=== PATIENT | male | born 1960 | race American Indian/Alaskan Native ===

== ENCOUNTER 2018-02-11 16:49 | Inpatient (IN) | payer OTHER ==
[2018-02-11 17:54] LABS: Basophils # (Auto) 0.1 K/mm3 (0.0-0.1); Basophils % (Auto) 0.8 % (0.0-1.8); Eosinophils # (Auto) 0.2 K/mm3 (0.0-0.4); Eosinophils % (Auto) 2.7 % (0.0-4.3); Hematocrit 44.7 % (35.5-45.6); Lymphocytes % (Auto) 43.4 % (13.4-35.0); Mean Corpuscular HGB Conc 34 % (32-34); Mean Corpuscular Hemoglobin 31 pg (28-32); Mean Corpuscular Volume 91 fl (84-94); Monocytes # (Auto) 0.8 K/mm3 (0.0-0.8); Monocytes % (Auto) 12.4 % (0.0-7.3); Platelet Count 109 K/mm3 (140-440); Red Blood Count 4.93 M/mm3 (3.65-5.03); Red Cell Distribution Width 13.6 % (13.2-15.2)
[2018-02-11 18:10] LABS: BUN/Creatinine Ratio 10; Blood Urea Nitrogen 11 mg/dL (9-20); Calcium 8.8 mg/dL (8.4-10.2); Hemolysis Index 25
--- NOTE | 2018-02-11 19:15 | XRay Report ---
FINAL REPORT PROCEDURE: XR CHEST ROUTINE 2V TECHNIQUE: PA and lateral chest radiographs were obtained. CPT 28107 HISTORY: Shortness of breath COMPARISON: No prior studies are available for comparison. FINDINGS: Heart: Normal. Mediastinum/Vessels: Normal. Lungs/Pleural space: Normal. Bony thorax: No acute osseous abnormality. Other: IMPRESSION: Negative examination.
--- NOTE | 2018-02-11 23:45 | Emergency Department Report ---
HPI - General Chief Complaint: Dyspnea/Respdistress Time Seen by Provider: 02/11/18 23:27 - HPI HPI: Room 22 The patient is a 57-year-old male presenting with chief complaint of right lower extremity swelling and shortness of breath. The patient states his symptoms began approximately one week ago had some mild shortness of breath. Patient states he takes laxative and his symptoms had improved. The patient states yesterday he completed an [address] with one stop when he got home he realized his right lower extremity with swelling. The patient states that shortness of breath also returned and worsened. Patient denied having chest pain or pleurisy. Location: Lungs, right lower extremity Duration: [See above] Quality: Shortness of breath, swelling Severity: Moderate Modifying factors: [see above] Context: [see above] Mode of transportation: [not driving] ED Past Medical Hx - Past Medical History Previous Medical History?: No - Surgical History Past Surgical History?: No - Family History Family history: no significant - Social History Smoking Status: Never Smoker Substance Use Type: None (denies illicit drug use) ED Review of Systems ROS: Stated complaint: DIFFICULTY BREATHING Other details as noted in HPI Respiratory: shortness of breath Cardiovascular: denies: chest pain Physical Exam - Physical Exam Vital Signs: Vital Signs 02/11/18 02/11/18 02/11/18 17:20 22:14 22:15 Temperature 98.6 F Pulse Rate 88 Respiratory 16 Rate Blood Pressure 139/84 127/81 O2 Sat by Pulse 97 98 97 Oximetry 02/11/18 02/11/18 22:22 22:30 Temperature 99.7 F H Pulse Rate Respiratory Rate Blood Pressure 116/76 O2 Sat by Pulse 96 Oximetry Physical Exam: GENERAL: The patient is well-developed well-nourished male sitting on stretcher not appearing to be in acute distress. [] HEENT: Normocephalic. Atraumatic. Extraocular motions are intact. Patient has moist mucous membranes. NECK: Supple. Trachea midline CHEST/LUNGS: Clear to auscultation. However patient coughs whenever he inspires deeply. There is no respiratory distress noted. HEART/CARDIOVASCULAR: Regular. There is no tachycardia. There is no gallop rub or murmur. ABDOMEN: Abdomen is soft, nontender. Patient has normal bowel sounds. There is no abdominal distention. SKIN: There is no rash. There is no edema. There is no diaphoresis. NEURO: The patient is awake, alert, and oriented. The patient is cooperative. The patient has no focal neurologic deficits. The patient has normal speech MUSCULOSKELETAL: There is swelling of the right calf. ED Course Vital Signs 02/11/18 02/11/18 02/11/18 17:20 22:14 22:15 Temperature 98.6 F Pulse Rate 88 Respiratory 16 Rate Blood Pressure 139/84 127/81 O2 Sat by Pulse 97 98 97 Oximetry 02/11/18 02/11/18 22:22 22:30 Temperature 99.7 F H Pulse Rate Respiratory Rate Blood Pressure 116/76 O2 Sat by Pulse 96 Oximetry - Consultations Consultation #1: 02/12/18 00:35 Vascular surgery paged 02/12/18 01:[address] Moore. Recommends heparin drip at this time. ED Medical Decision Making - Lab Data Result diagrams: 02/11/18 17:27 02/11/18 17:27 Laboratory Tests 02/11/18 02/11/18 02/11/18 17:27 17:27 17:27 WBC 6.8 RBC 4.93 Hgb 15.0 Hct 44.7 MCV 91 MCH 31 MCHC 34 RDW 13.6 Plt Count 109 L Lymph % (Auto) 43.4 H Giles % (Auto) 12.4 H Eos % (Auto) 2.7 Baso % (Auto) 0.8 Lymph # 3.0 Giles # 0.8 Eos # 0.2 Baso # 0.1 Seg Neutrophils % 40.7 Seg Neutrophils # 2.8 D-Dimer 1919.19 H Sodium 137 Potassium 3.9 Chloride 100.5 Carbon Dioxide 24 Anion Gap 16 BUN 11 Creatinine 1.1 Estimated GFR > 60 BUN/Creatinine Ratio 10 Glucose 123 H Calcium 8.8 Troponin T < 0.010 - EKG Data -: EKG Interpreted by Me EKG shows normal: sinus rhythm Rate: normal - EKG Data When compared to previous EKG there are: previous EKG unavailable Interpretation: nonspecific ST-T wave marquis (T-wave inversion in lead 3) - Radiology Data Radiology results: report reviewed (chest x-ray), image reviewed (chest x-ray) interpreted by me: Chest x-ray- no focal infiltrate, no pneumothorax - Differential Diagnosis PE, DVT, pneumonia, Critical care attestation.: If time is entered above; I have spent that time in minutes in the direct care of this critically ill patient, excluding procedure time. ED Disposition Clinical Impression: Acute saddle pulmonary embolus, Shortness of breath Disposition: OP ADMIT IP TO THIS HOSP Is pt being admited?: Yes Does the pt Need Aspirin: No Condition: Serious Referrals: PRIMARY CARE,MD [Primary Care Provider] - 3-5 Days Time of Disposition: 01:00 (hospitalist notified (Dr Desai))
--- NOTE | 2018-02-12 00:40 | Cat Scan Report ---
FINAL REPORT PROCEDURE: CT ANGIO CHEST TECHNIQUE: Computerized tomographic angiography of the chest was performed during the IV injection of iodinated nonionic contrast including image processing. The image data was postprocessed using 2-dimensional multiplanar reformatted (MPR) and 3-dimensional (MIP and/or volume rendered) techniques. HISTORY: shortness of breath COMPARISON: No prior studies are available for comparison. FINDINGS: Pulmonary outflow tract, right and left main pulmonary arteries and their proximal branches: There is a filling defects seen extending from the right main pulmonary artery laterally to the left main pulmonary artery laterally. Filling defects also extend into branches of the right and left upper lobes and into proximal and distal branches of the right and left lower lobes.. Pericardium: No evidence of pericardial effusion. Thoracic aorta: No evidence of aneurysmal dilatation or dissection. Coronary arteries: Are partially calcified indicating atherosclerotic disease. Mediastinum and hilar regions: Nonspecific subcentimeter lymph nodes are visualized. No pathologically enlarged lymph nodes or masses are identified. Lung Aggarwal: Small amount of dependent atelectasis visualized. Lungs otherwise are clear. No effusions or masses are identified. No focal infiltrates are seen. Upper abdomen: No acute or focal abnormality is seen. Other: None IMPRESSION: Large saddle embolus present as well as fairly extensive emboli in the upper lobes and in both lower lobes. Critical value: These findings were discussed with Dr Natarajan by phone conversation on 02/12/2018 at 12:28 a.m. Eastern standard time
[2018-02-12] MEDS ORDERED: HEPARIN 10,000 UNITS/10 ML IV ONE (01:06)
[2018-02-12] MEDS: HEPARIN/ 0.45% NACL-25,000 UNIT/500 ML 25,000 UNIT/500 ML BAG IV SCH ×2 (01:44→23:06)
[2018-02-12 02:28] LABS: INR 0.98 (0.87-1.13)
[2018-02-12 02:29] LABS: Partial Thromboplastin Time 31.7 Sec. (24.2-36.6)
[2018-02-12] MEDS ORDERED: MORPHINE IV PRN (07:59)
[2018-02-12] MEDS ORDERED: PERCOCET 5/325 PO PRN (07:59)
[2018-02-12] MEDS ORDERED: XANAX PO PRN (07:59)
[2018-02-12] MEDS ORDERED: AMBIEN PO PRN (07:59)
[2018-02-12] MEDS ORDERED: SODIUM CHLORIDE FLUSH SYRINGE 10 ML IV PRN (07:59)
[2018-02-12] MEDS ORDERED: NACL 0.9% 1000 ML 1,000 ML IV SCH (08:00)
--- NOTE | 2018-02-12 08:04 | Event Note ---
Date: 02/12/18 See Dictated H/p in reports Acute Pulmonary embolism--Saddle embolus [employer] driver-sitting for prolonged periods
[2018-02-12] MEDS: SODIUM CHLORIDE FLUSH SYRINGE 10 ML IV SCH (09:30)
[2018-02-12] MEDS: PEPCID IV SCH ×2 (09:30→23:10)
[2018-02-12 11:14] LABS: Hematocrit 42.9 % (35.5-45.6); Hemoglobin 14.3 gm/dl (11.8-15.2)
[2018-02-12 11:26] LABS: INR 1.06 (0.87-1.13)
[2018-02-12 11:28] LABS: Heparin anti-factor XA 0.87 U.I./ml (0.3-0.7)
--- NOTE | 2018-02-12 12:03 | Progress Note ---
Assessment and Plan Assessment and plan: --Acute pulmonary embolism/saddle thrombus Oxygen titrated O2 sats more than 90%, continue heparin drip Follow vascular, pulmonary evaluations and recommendations Closely monitor, Check lower extremity venous Doppler, to rule out DVT Consider hematology consultation Echocardiogram for left ventricular and right ventricle function --Chest pain; secondary to PE Continue supportive care --DVT prophylaxis; patient is already on heparin drip Closely monitor the patient and adjust management as needed Plan of care discussed with the patient, his at the bedside and his nurse Critical care time 32 minutes History Interval history: 57-year-old obese -Irish male patient, with no significant past medical history not on any medications, [employer] moving van driver by profession, was admitted through emergency room with history of acute chest pain and right lower extremity swelling Patient was initially evaluated noted to have elevated d-dimer , CTA chest consistent with acute PE /saddle thrombus, patient was admitted to ICU and started on heparin drip, consulted vascular and pulmonary critical Today Patient is hemodynamically stable, saturating 95-96% room air Complains of mild chest discomfort this morning, denies chest pain or shortness of breath Alert awake oriented 3 Vital signs stable Hospitalist Physical - Constitutional Vitals: Temp Pulse Resp BP Pulse Ox 98.4 F 85 16 117/58 98 02/12/18 07:56 02/12/18 11:00 02/12/18 11:00 02/12/18 11:00 02/12/18 11:00 General appearance: Present: no acute distress, well-nourished, obese - EENT Eyes: Present: PERRL, EOM intact - Neck Neck: Present: supple, normal ROM - Respiratory Respiratory effort: normal Respiratory: bilateral: diminished, rhonchi, negative: rales, wheezing - Cardiovascular Rhythm: regular Heart Sounds: Present: S1 & S2 - Extremities Extremities: no ischemia, abnormal (right lower extremity swelling) - Abdominal General gastrointestinal: soft, non-tender, non-distended, normal bowel sounds - Integumentary Integumentary: Present: clear, warm - Psychiatric Psychiatric: appropriate mood/affect, cooperative - Neurologic Neurologic: CNII-XII intact, moves all extremities Results - Labs CBC & Chem 7: 02/12/18 10:11 02/11/18 17:27 Labs: Laboratory Last Values WBC 6.8 K/mm3 (4.5-11.0) 02/11/18 17:27 RBC 4.93 M/mm3 (3.65-5.03) 02/11/18 17:27 Hgb 14.3 gm/dl (11.8-15.2) 02/12/18 10:11 Hct 42.9 % (35.5-45.6) 02/12/18 10:11 MCV 91 fl (84-94) 02/11/18 17: MCH 31 pg (28-32) 02/11/18 17: MCHC 34 % (32-34) 02/11/18 17: RDW 13.6 % (13.2-15.2) 02/11/18 17: Plt Count 115 K/mm3 (140-440) L 02/12/18 10:11 Lymph % (Auto) 43.4 % (13.4-35.0) H 02/11/18 17: Garden % (Auto) 12.4 % (0.0-7.3) H 02/11/18 17: Eos % (Auto) 2.7 % (0.0-4.3) 02/11/18 17: Baso % (Auto) 0.8 % (0.0-1.8) 02/11/18 17: Lymph # 3.0 K/mm3 (1.2-5.4) 02/11/18 17: Garden # 0.8 K/mm3 (0.0-0.8) 02/11/18 17: Eos # 0.2 K/mm3 (0.0-0.4) 02/11/18 17: Baso # 0.1 K/mm3 (0.0-0.1) 02/11/18 17: Seg Neutrophils % 40.7 % (40.0-70.0) 02/11/18 17: Seg Neutrophils # 2.8 K/mm3 (1.8-7.7) 02/11/18 17: PT 14.4 Sec. (12.2-14.9) 02/12/18 10:11 INR 1.06 (0.87-1.13) 02/12/18 10:11 APTT 212.0 Sec. (24.2-36.6) H* 02/12/18 10:11 D-Dimer 1919.19 ng/mlDDU (0-234) H 02/11/18 17:27 Heparin Anti-Xa Level 0.87 U.I./ml (0.3-0.7) H 02/12/18 10:11 Sodium 137 mmol/L (137-145) 02/11/18 17:27 Potassium 3.9 mmol/L (3.6-5.0) 02/11/18 17:27 Chloride 100.5 mmol/L (98-107) 02/11/18 17:27 Carbon Dioxide 24 mmol/L (22-30) 02/11/18 17:27 Anion Gap 16 mmol/L 02/11/18 17:27 BUN 11 mg/dL (9-20) 02/11/18 17:27 Creatinine 1.1 mg/dL (0.8-1.5) 02/11/18 17:27 Estimated GFR > 60 ml/min 02/11/18 17:27 BUN/Creatinine Ratio 10 % 02/11/18 17:27 Glucose 123 mg/dL (75-100) H 02/11/18 17:27 Calcium 8.8 mg/dL (8.4-10.2) 02/11/18 17:27 Troponin T < 0.010 ng/mL (0.00-0.029) 02/11/18 17:27
[2018-02-12] MEDS ORDERED: PROAIR IH PRN (12:14)
--- NOTE | 2018-02-12 12:23 | Consultation ---
History of Present Illness Consult date: 02/12/18 Requesting physician: PEDRO TREVIÑO Reason for consult: pulmonary embolism History of present illness: PULMONARY/CCM CONSULT NOTE (Full dictation # [id number]) Please see dictated notes for full details Medications and Allergies Allergies Allergy/AdvReac Type Severity Reaction Status Date / Time No Known Allergies Allergy Verified 02/11/18 17:20 Home Medications Medication Instructions Recorded Confirmed Last Taken Type No Known Home Medications [No 02/12/18 02/12/18 Unknown History Reported Home Medications] Active Meds: Active Medications Albuterol (Proair) 2 puff IH QIDRT PRN PRN Reason: Shortness Of Breath Alprazolam (Xanax) 0.25 mg PO Q8H PRN PRN Reason: Anxiety Famotidine (Pepcid) 20 mg IV BID [facility] Last Admin: 02/12/18 09:30 Dose: 20 mg Heparin Sodium/Sodium Chloride (Heparin/ 0.45% Nacl-25,000 Unit/500 Ml) 25,000 unit in 500 mls @ 27 mls/hr IV TITR JAVY; Protocol Last Titration: 02/12/18 11:34 Dose: 1,300 units/hr, 26 mls/hr Sodium Chloride (Nacl 0.9% 1000 Ml) 1,000 mls @ 75 mls/hr IV DIRECT JAVY Morphine Sulfate (Morphine) 2 mg IV Q4H PRN PRN Reason: Pain, Moderate (4-6) Oxycodone/Acetaminophen (Percocet 5/325) 1 tab PO Q6H PRN PRN Reason: Pain, Moderate (4-6) Sodium Chloride (Sodium Chloride Flush Syringe 10 Ml) 10 ml IV BID JAVY Last Admin: 02/12/18 09:30 Dose: 10 ml Sodium Chloride (Sodium Chloride Flush Syringe 10 Ml) 10 ml IV PRN PRN PRN Reason: LINE FLUSH Zolpidem Tartrate (Ambien) 5 mg PO QHS PRN PRN Reason: Sleeplessness Physical Examination Vital signs: Vital Signs Temp Pulse Resp BP Pulse Ox 98.6 F 88 16 139/84 97 02/11/18 17:20 02/11/18 17:20 02/11/18 17:20 02/11/18 17:20 02/11/18 17:20 Results - Laboratory Findings CBC and BMP: 02/12/18 10:11 02/11/18 17:27 PT/INR, D-dimer PT 14.4 Sec. (12.2-14.9) 02/12/18 10:11 INR 1.06 (0.87-1.13) 02/12/18 10:11 D-Dimer 1919.19 ng/mlDDU (0-234) H 02/11/18 17:27 Abnormal lab findings: Abnormal Labs 02/11/18 02/11/18 02/11/18 17:27 17:27 17:27 Plt Count 109 L Lymph % (Auto) 43.4 H [place] % (Auto) 12.4 H APTT D-Dimer 1919.19 H Heparin Anti-Xa Level Glucose 123 H 02/12/18 02/12/18 10:11 10:11 Plt Count 115 L Lymph % (Auto) [place] % (Auto) APTT 212.0 H* D-Dimer Heparin Anti-Xa Level 0.87 H Glucose
--- NOTE | 2018-02-12 12:44 | Consultation ---
History of Present Illness - Reason for Consult Consult date: 02/12/18 pulmonary embolus Requesting physician: PEDRO TREVIÑO - History of Present Illness He is a 57-year-old -[place] male arrived and lamina after an [address] from [facility]. He noted some right leg discomfort and minor swelling and then developed significant shortness of breath and presented to the emergency room. He was found to have a bilateral pulmonary embolism with CT diagnosis of saddle embolus. We were consulted at that point to evaluate him for possible catheter directed thrombolyzes. He denies syncope or presyncope. He has had some chest tightness and breathlessness. He denies prior knowledge of a DVT; however, does relate a previous episode several years ago of right ankle swelling that was treated with a diuretic only and no diagnostic tests and was not associated with shortness of breath. He denies any other significant medical issues specifically no known history of coronary artery disease or congestive heart failure and liver failure or renal failure. Past History Past Surgical History: No surgical history Social history: no significant social history Family history: no significant family history Medications and Allergies Allergies Allergy/AdvReac Type Severity Reaction Status Date / Time No Known Allergies Allergy Verified 02/11/18 17:20 Home Medications Medication Instructions Recorded Confirmed Last Taken Type No Known Home Medications [No 02/12/18 02/12/18 Unknown History Reported Home Medications] Active Meds: Active Medications Albuterol (Proair) 2 puff IH QIDRT PRN PRN Reason: Shortness Of Breath Alprazolam (Xanax) 0.25 mg PO Q8H PRN PRN Reason: Anxiety Famotidine (Pepcid) 20 mg IV BID JAVY Last Admin: 02/12/18 09:30 Dose: 20 mg Heparin Sodium/Sodium Chloride (Heparin/ 0.45% Nacl-25,000 Unit/500 Ml) 25,000 unit in 500 mls @ 27 mls/hr IV TITR JAVY; Protocol Last Titration: 02/12/18 11:34 Dose: 1,300 units/hr, 26 mls/hr Sodium Chloride (Nacl 0.9% 1000 Ml) 1,000 mls @ 75 mls/hr IV DIRECT JAVY Morphine Sulfate (Morphine) 2 mg IV Q4H PRN PRN Reason: Pain, Moderate (4-6) Oxycodone/Acetaminophen (Percocet 5/325) 1 tab PO Q6H PRN PRN Reason: Pain, Moderate (4-6) Sodium Chloride (Sodium Chloride Flush Syringe 10 Ml) 10 ml IV BID JAVY Last Admin: 02/12/18 09:30 Dose: 10 ml Sodium Chloride (Sodium Chloride Flush Syringe 10 Ml) 10 ml IV PRN PRN PRN Reason: LINE FLUSH Zolpidem Tartrate (Ambien) 5 mg PO QHS PRN PRN Reason: Sleeplessness Review of Systems All systems: negative (as mentioned in the history of present illness) Exam - Constitutional Vitals: Temp Pulse Resp BP Pulse Ox 98.6 F 75 16 114/73 99 02/12/18 12:00 02/12/18 12:00 02/12/18 12:00 02/12/18 12:00 02/12/18 12:00 General appearance: Present: no acute distress - EENT Eyes: Present: PERRL, EOM intact ENT: hearing intact, clear oral mucosa, dentition normal - Neck Neck: Present: supple, normal ROM - Respiratory Respiratory effort: normal - Cardiovascular Rhythm: regular - Extremities Extremities: pulses intact Extremity abnormal: edema (mild right lower extremity), tenderness (minor tenderness right calf) Peripheral Pulses: within normal limits - Abdominal General gastrointestinal: Present: soft, non-tender Male genitourinary: Present: deferred - Rectal Rectal Exam: deferred - Integumentary Integumentary: Present: clear, warm, dry - Musculoskeletal Musculoskeletal: gait normal, strength equal bilaterally - Psychiatric Psychiatric: appropriate mood/affect, intact judgment & insight - Neurologic Neurologic: CNII-XII intact, moves all extremities Results - Labs CBC & Chem 7: 02/12/18 10:11 02/11/18 17:27 Labs: Abnormal lab results 02/11/18 02/11/18 02/11/18 Range/Units 17:27 17:27 17:27 Plt Count 109 L (140-440) K/mm3 Lymph % (Auto) 43.4 H (13.4-35.0) % Noble % (Auto) 12.4 H (0.0-7.3) % APTT (24.2-36.6) Sec. D-Dimer 1919.19 H (0-234) ng/mlDDU Heparin Anti-Xa Level (0.3-0.7) U.I./ml Glucose 123 H (75-100) mg/dL 02/12/18 02/12/18 Range/Units 10:11 10:11 Plt Count 115 L (140-440) K/mm3 Lymph % (Auto) (13.4-35.0) % Noble % (Auto) (0.0-7.3) % APTT 212.0 H* (24.2-36.6) Sec. D-Dimer (0-234) ng/mlDDU Heparin Anti-Xa Level 0.87 H (0.3-0.7) U.I./ml Glucose (75-100) mg/dL - Imaging and Cardiology CT scan - chest: report reviewed, image reviewed (bilateral subsegmental pulmonary embolism, small amount draped across the bifurcation of the main pulmonary artery but nonobstructive. Minor evidence of right heart strain with minimal dilatation of the right ventricle. Coronary calcifications noted incidental finding.) Venous US: pending (preliminary right popliteal and distal superficial femoral venous thrombosis) Assessment and Plan - Patient Problems (1) Deep venous embolism and thrombosis of right lower extremity Onset Date: ~02/10/18 Current Visit: Yes Status: Acute (2) Acute saddle pulmonary embolus Current Visit: Yes Status: Acute Qualifiers: Acute cor pulmonale presence: without acute cor pulmonale Qualified Code(s) : I26.92 - Saddle embolus of pulmonary artery without acute cor pulmonale Plan to address problem: He has bilateral pulmonary emboli but is hemodynamically stable. The absence of syncope, hypoxemia, or significant right heart strain strongly suggests that he does not require catheter directed thrombolyzes for recovery. It is recommended that he begin oral anticoagulation and if Eliquis or Xeralto is selected he could be discharged once his abilities to obtain this medication is confirmed. He has been given appropriate instructions for elevation and will need as an outpatient a prescription for compression hosiery which can be obtained in our office. I would recommend a minimum of 6 months and probably one year of therapy. He may require an outpatient evaluation for thrombophilia as this may be his second episode of DVT.
--- NOTE | 2018-02-12 13:56 | History and Physical Report ---
CHIEF COMPLAINT: Shortness of breath for 1 week. HISTORY OF PRESENT ILLNESS: A 57-year-old -[place] male with no significant past medical history, comes in for increasing shortness of breath and right lower extremity swelling. This has been going on for 1 week and has shortness of breath on minimal exertion. 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 He ____ long car ride ____, but it was remote in October. 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 PAST MEDICAL HISTORY: None. PAST SURGICAL HISTORY: None. FAMILY HISTORY: Hypertension. SOCIAL HISTORY: Does not smoke. No alcohol, no recreational drugs. REVIEW OF SYSTEMS: Significant for shortness of breath on exertion and at rest, and right lower extremity swelling. Otherwise, review of systems negative. A 14-point review of systems done. PHYSICAL EXAMINATION: GENERAL: Middle-aged male, cooperative during examination. VITAL SIGNS: Temperature is 98.6, pulse is 88, respirations 16, blood pressure 139/84, sats are 98%. HEENT: Unremarkable. Pupils equal and reactive. NECK: Supple, no lymphadenopathy, no thyromegaly. LUNGS: Scattered rhonchi bilaterally. CARDIOVASCULAR: S1, S2 heard. No gallop, no murmur, no rub. Apical impulse in left fifth intercostal space and midclavicular line. ABDOMEN: Soft and benign. No hepatosplenomegaly, no guarding, no rigidity. Hernial orifices are normal. EXTREMITIES: Good pedal pulses. No pedal edema. The right lower extremity is slightly swollen. LABORATORY DATA: Significant for normal electrolytes. Glucose is slightly high 123, BUN and creatinine is 11 and 1.1. H and H is [address] of the chest, CT angiogram shows filling defects extending from the right main pulmonary artery laterally and also left main pulmonary artery laterally. Filling defects also extending to the branches of the right and left upper lobes and in the proximal and distal branches of the right and left lower lobes. The final impression was large saddle embolism as well as fairly extensive emboli in the upper lobes and in both lower lobes. EKG, sinus tachycardia present. ASSESSMENT AND PLAN: 1. Acute pulmonary embolism with saddle embolism. Vascular Surgery consulted and also Critical Care Unit consulted. The patient initiated on IV heparin. We will defer to the hospitalist team regarding Coumadin or Xarelto or Eliquis. 2. Right lower extremity deep venous thrombosis, ____ strong possibility. Venous duplex scan to be reported. 3. Deep venous thrombosis prophylaxis. The patient already on heparin. JOB# [id number] VSM/NTS
[2018-02-12] MEDS ORDERED: PROVENTIL IH PRN (16:00)
[2018-02-13 03:44] LABS: Hematocrit 42.1 % (35.5-45.6); Hemoglobin 14.7 gm/dl (11.8-15.2); Mean Corpuscular HGB Conc 35 % (32-34); Mean Corpuscular Hemoglobin 31 pg (28-32); Mean Corpuscular Volume 89 fl (84-94); Platelet Count 117 K/mm3 (140-440); Red Blood Count 4.72 M/mm3 (3.65-5.03); Red Cell Distribution Width 13.2 % (13.2-15.2)
[2018-02-13 04:08] LABS: Alanine Aminotransferase 13 units/L (7-56); Albumin 3.6 g/dL (3.9-5); BUN/Creatinine Ratio 10; Blood Urea Nitrogen 11 mg/dL (9-20); Calcium 8.6 mg/dL (8.4-10.2); Hemolysis Index 5
[2018-02-13 04:43] LABS: Basophils % (Manual) 0 % (0.0-1.8); Platelet Estimate Consistent w Auto; RBC Morphology Normal; Total Cells Counted 100
--- NOTE | 2018-02-13 05:03 | Consultation ---
PULMONARY CRITICAL CARE CONSULT NOTE CONSULTING PHYSICIAN: Dr. Natarajan. REASON FOR CONSULTATION: Saddle pulmonary embolus, need for possible thrombolytics. CHIEF COMPLAINT AND HISTORY OF PRESENT ILLNESS: The patient is a 57-year-old male with past medical history significant perhaps for being obese. Otherwise, he denies any real medical history. He does complain about 1 week of increasing shortness of breath, right lower extremity swelling. He took some laxatives. His symptoms improved; however, on the day of presentation, he stated he had just completed an 8-hour drive and when he got home, he noticed that there was significant increase in the right lower extremity swelling. He has also developed increasing dyspnea on exertion. He denied any gross or streaky hemoptysis. He denied any chest pain, pleuritic or otherwise. He stated that he was burping a lot whenever he would try and take a deep breath and really that was as much as he noted. Evaluation in the Emergency Room revealed a saddle pulmonary embolus. He denied any dizziness. He denied any loss of consciousness. He denied any new onset focal weakness. The patient denies a history of tobacco use whatsoever. This really is as much of the history of presentation as I have. PAST MEDICAL HISTORY: Obese. PAST SURGICAL HISTORY: Denied. MEDICATIONS: He was on at the time I stopped by to see him according to the medication administration record included the following: Pepcid 20 mg IV b.i.d., Xanax 0.25 mg p.o. q. 8 hours. He was on a heparin drip 1350 units per hour p.r.n., morphine sulfate 2 mg IV q. 4 hours p.r.n. nausea and vomiting and p.r.n. Ambien. ALLERGIES: No known drug allergies. DIET: Obese gentleman. Denies acute weight loss or gain in the preceding few weeks to months. FAMILY AND SOCIAL HISTORY: Lives in the community. Denies alcohol, tobacco, or illicit drug use or abuse. FAMILY HISTORY: Not significant and denies any history of blood clots. REVIEW OF SYSTEMS: As in the body of the history above, otherwise denies polydipsia, polyuria. Denies heat or cold intolerance. Denies any new rashes on his body. Denies any gross hematochezia or melena. Complete review of systems obtained. Pertinent positives and/or negatives as in body of history above, otherwise they are noncontributory. PHYSICAL EXAMINATION: VITAL SIGNS: At presentation in the Emergency Room vital signs show that he was afebrile, temperature was 98.6 with a pulse of 88, respiratory rate of 16, blood pressure 139/84, oxygen sats were 97%, inspired oxygen concentration was not recorded. GENERAL: A middle-aged looking male normocephalic, atraumatic, talking to me in full sentences, in mild respiratory distress at worst. HEAD, EYES, EARS, NOSE AND THROAT: Anicteric. No conjunctival erythema. Grossly, no palpable lymph nodes in the supraclavicular or submandibular lymph node chains. No thyromegaly, no gross jugular venous distention. Oropharynx is a Mallampati #4 oropharynx. Oropharynx is moist. LUNGS: Auscultation of both lung landis unremarkable. Lungs are clear bilaterally. HEART: Heart sounds 1 and 2 are heard at the time of my evaluation, regular rate and rhythm. No rubs, no gallops, no murmurs. ABDOMEN: Soft, full, bowel sounds are positive and nontender. EXTREMITIES: He has right lower extremity swelling with about 1+ pedal edema. No erythema. Negative Homans sign. Left lower extremity is normal. Dorsalis pedis pulses are palpable bilaterally. NEUROLOGIC: The pupils are equal, round, about 3-4 mm, reactive to light. Extraocular muscle movements are intact. He moved all 4 extremities spontaneously. Chest x-ray was done. I have reviewed the chest x-ray, unremarkable chest x-ray. No cardiomegaly. A CT angiogram of his chest was done. I have reviewed the CT angio. I do see the thin sliver of a saddle embolus as well as filling defects in both right and left particular lower lobe pulmonary artery trunks. The lung windows reveal mostly normal pulmonary architecture, no gross pneumothorax, no gross bony fractures. I should mention that his labs were reviewed. White cell count 6800, hemoglobin 15.0, hematocrit 44.7, platelet count was 109. INR was 0.98. D-dimer 1919. Serum sodium 137, potassium 3.9, chloride 101, bicarbonate 24, BUN 11, creatinine 1.1 and a glucose of 123. Troponin was within normal limits. ASSESSMENT AND PLAN: 1. Acute respiratory distress. 2. Acute pulmonary saddle embolus with moderate clot burden of clot burden. 3. Obesity. 4. Elevated D-dimer. 5. Hyperglycemia. 6. Thrombocytopenia. PLAN: 1. Continue IV heparin drip. 2. I have discussed at length with the vascular surgeon. He is not a candidate for thrombolytics at this point or clot retraction. He is hemodynamically stable. We do not have a 2D echo; however, CT scan does not show evidence of overt right heart strain. He will be switched to an oral agent shortly. We will keep an eye on his platelet count. It is increased today, especially with him on the heparin drip. We will monitor H and H to evaluate for any possible bleeding. DVT has been found in the right lower extremity. No acute indication for IVC filter at this point. I do believe that the long distance travel was the likely etiology of this decompensation. He will be advised to follow up with the outpatient pulmonary clinic. He is appropriately on GI prophylaxis. Flu and pneumonia vaccination will be addressed per protocol. He is stable enough to be transferred to the telemetry floor at this time and that will be the recommendation. Thank you very much for the consult. We will follow along. We will make further recommendations as picture progresses/becomes clearer. JOB# [id number] ABI/TRISH BECKETT
[2018-02-13] MEDS: PEPCID IV SCH ×2 (11:00→21:54)
--- NOTE | 2018-02-13 12:40 | Progress Note ---
Assessment and Plan Assessment and plan: --Acute pulmonary embolism/saddle thrombus Oxygen titrated O2 sats more than 90%, continue heparin drip No vascular intervention needed , pulmonary following hematology evaluation and recommendations noted Echocardiogram within normal limits Switch to Eliquis 10mg bidx 7 days, and 5 mg twice a day later on --Right lower extremity DVT; continue heparin drip --Chest pain; secondary to PE, Continue supportive care --Constipation; milk of magnesia as needed --Possible discharge home tomorrow if stable, On Eliquis Plan of care is reviewed with the patient and his History Interval history: Patient seen and examined medical records reviewed Denies chest pain shortness of breath On heparin drip Complaints of constipation Alert awake oriented 3 vital signs reviewed Hospitalist Physical - Constitutional Vitals: Temp Pulse Resp BP Pulse Ox 97.7 F 70 14 153/86 97 02/13/18 08:40 02/13/18 08:40 02/13/18 08:40 02/13/18 08:40 02/13/18 08:40 General appearance: Present: no acute distress, well-nourished, obese - EENT Eyes: Present: PERRL, EOM intact - Neck Neck: Present: supple, normal ROM - Respiratory Respiratory effort: normal Respiratory: bilateral: diminished, rhonchi, negative: rales, wheezing - Cardiovascular Rhythm: regular Heart Sounds: Present: S1 & S2 - Extremities Extremities: no ischemia, No edema, abnormal (swelling right lower extremity) - Abdominal General gastrointestinal: soft, non-tender, non-distended, normal bowel sounds - Integumentary Integumentary: Present: clear, warm - Psychiatric Psychiatric: appropriate mood/affect, cooperative - Neurologic Neurologic: CNII-XII intact, moves all extremities Results - Labs CBC & Chem 7: 02/13/18 03:30 02/13/18 03:30 Labs: Laboratory Last Values WBC 5.9 K/mm3 (4.5-11.0) 02/13/18 03:30 RBC 4.72 M/mm3 (3.65-5.03) 02/13/18 03:30 Hgb 14.7 gm/dl (11.8-15.2) 02/13/18 03:30 Hct 42.1 % (35.5-45.6) 02/13/18 03:30 MCV 89 fl (84-94) 02/13/18 03:30 MCH 31 pg (28-32) 02/13/18 03:30 MCHC 35 % (32-34) H 02/13/18 03:30 RDW 13.2 % (13.2-15.2) 02/13/18 03:30 Plt Count 117 K/mm3 (140-440) L 02/13/18 03:30 Lymph % (Auto) 43.4 % (13.4-35.0) H 02/11/18 17:27 [place] % (Auto) 12.4 % (0.0-7.3) H 02/11/18 17:27 Eos % (Auto) 2.7 % (0.0-4.3) 02/11/18 17: Baso % (Auto) 0.8 % (0.0-1.8) 02/11/18 17: Lymph # 3.0 K/mm3 (1.2-5.4) 02/11/18 17: [place] # 0.8 K/mm3 (0.0-0.8) 02/11/18 17: Eos # 0.2 K/mm3 (0.0-0.4) 02/11/18 17: Baso # 0.1 K/mm3 (0.0-0.1) 02/11/18 17:27 Add Manual Diff Complete 02/13/18 03:30 Total Counted 100 02/13/18 03:30 Seg Neutrophils % Erisa Attorney 02/13/18 03:30 Seg Neuts % (Manual) 34.0 % (40.0-70.0) L 02/13/18 03:30 Band Neutrophils % 0 % 02/13/18 03:30 Lymphocytes % (Manual) 57.0 % (13.4-35.0) H 02/13/18 03:30 Reactive Lymphs % (Man) 2.0 % 02/13/18 03:30 Monocytes % (Manual) 6.0 % (0.0-7.3) 02/13/18 03:30 Eosinophils % (Manual) 1.0 % (0.0-4.3) 02/13/18 03:30 Basophils % (Manual) 0 % (0.0-1.8) 02/13/18 03:30 Metamyelocytes % 0 % 02/13/18 03:30 Myelocytes % 0 % 02/13/18 03:30 Promyelocytes % 0 % 02/13/18 03:30 Blast Cells % 0 % 02/13/18 03:30 Nucleated RBC % Not Reportable 02/13/18 03:30 Seg Neutrophils # 2.8 K/mm3 (1.8-7.7) 02/11/18 17:27 Seg Neutrophils # Man 2.0 K/mm3 (1.8-7.7) 02/13/18 03:30 Band Neutrophils # 0.0 K/mm3 02/13/18 03:30 Lymphocytes # (Manual) 3.4 K/mm3 (1.2-5.4) 02/13/18 03:30 Abs React Lymphs (Man) 0.1 K/mm3 02/13/18 03:30 Monocytes # (Manual) 0.4 K/mm3 (0.0-0.8) 02/13/18 03:30 Eosinophils # (Manual) 0.1 K/mm3 (0.0-0.4) 02/13/18 03:30 Basophils # (Manual) 0.0 K/mm3 (0.0-0.1) 02/13/18 03:30 Metamyelocytes # 0.0 K/mm3 02/13/18 03:30 Myelocytes # 0.0 K/mm3 02/13/18 03:30 Promyelocytes # 0.0 K/mm3 02/13/18 03:30 Blast Cells # 0.0 K/mm3 02/13/18 03:30 WBC Morphology Not Reportable 02/13/18 03:30 Hypersegmented Neuts Not Reportable 02/13/18 03:30 Hyposegmented Neuts Not Reportable 02/13/18 03:30 Hypogranular Neuts Not Reportable 02/13/18 03:30 Smudge Cells Not Reportable 02/13/18 03:30 Toxic Granulation Not Reportable 02/13/18 03:30 Toxic Vacuolation Not Reportable 02/13/18 03:30 Dohle Bodies Not Reportable 02/13/18 03:30 Pelger-Huet Anomaly Not Reportable 02/13/18 03:30 Suleman Rods Not Reportable 02/13/18 03:30 Platelet Estimate Consistent w auto 02/13/18 03:30 Clumped Platelets Not Reportable 02/13/18 03:30 Plt Clumps, EDTA Not Reportable 02/13/18 03:30 Large Platelets Not Reportable 02/13/18 03:30 Giant Platelets Not Reportable 02/13/18 03:30 Platelet Satelliting Not Reportable 02/13/18 03:30 Plt Morphology Comment Not Reportable 02/13/18 03:30 RBC Morphology Normal 02/13/18 03:30 Dimorphic RBCs Not Reportable 02/13/18 03:30 Polychromasia Not Reportable 02/13/18 03:30 Hypochromasia Not Reportable 02/13/18 03:30 Poikilocytosis Not Reportable 02/13/18 03:30 Anisocytosis Not Reportable 02/13/18 03:30 Microcytosis Not Reportable 02/13/18 03:30 Macrocytosis Not Reportable 02/13/18 03:30 Spherocytes Not Reportable 02/13/18 03:30 Pappenheimer Bodies Not Reportable 02/13/18 03:30 Sickle Cells Not Reportable 02/13/18 03:30 Target Cells Not Reportable 02/13/18 03:30 Tear Drop Cells Not Reportable 02/13/18 03:30 Ovalocytes Not Reportable 02/13/18 03:30 Helmet Cells Not Reportable 02/13/18 03:30 Niño-Zihlman Bodies Not Reportable 02/13/18 03:30 Randall Rings Not Reportable 02/13/18 03:30 Anupama Cells Not Reportable 02/13/18 03:30 Bite Cells Not Reportable 02/13/18 03:30 Crenated Cell Not Reportable 02/13/18 03:30 Elliptocytes Not Reportable 02/13/18 03:30 Acanthocytes (Spur) Not Reportable 02/13/18 03:30 Rouleaux Not Reportable 02/13/18 03:30 Hemoglobin C Crystals Not Reportable 02/13/18 03:30 Schistocytes Not Reportable 02/13/18 03:30 Malaria parasites Not Reportable 02/13/18 03:30 Olaf Bodies Not Reportable 02/13/18 03:30 Hem Pathologist Commnt No 02/13/18 03:30 PT 14.4 Sec. (12.2-14.9) 02/12/18 10:11 INR 1.06 (0.87-1.13) 02/12/18 10:11 APTT 212.0 Sec. (24.2-36.6) H* 02/12/18 10:11 D-Dimer 1919.19 ng/mlDDU (0-234) H 02/11/18 17:27 Heparin Anti-Xa Level 0.67 U.I./ml (0.3-0.7) 02/13/18 03:30 Sodium 141 mmol/L (137-145) 02/13/18 03:30 Potassium 3.9 mmol/L (3.6-5.0) 02/13/18 03:30 Chloride 102.7 mmol/L (98-107) 02/13/18 03:30 Carbon Dioxide 24 mmol/L (22-30) 02/13/18 03:30 Anion Gap 18 mmol/L 02/13/18 03:30 BUN 11 mg/dL (9-20) 02/13/18 03:30 Creatinine 1.1 mg/dL (0.8-1.5) 02/13/18 03:30 Estimated GFR > 60 ml/min 02/13/18 03:30 BUN/Creatinine Ratio 10 % 02/13/18 03:30 Glucose 153 mg/dL (75-100) H 02/13/18 03:30 Calcium 8.6 mg/dL (8.4-10.2) 02/13/18 03:30 Total Bilirubin 0.30 mg/dL (0.1-1.2) 02/13/18 03:30 AST 15 units/L (5-40) 02/13/18 03:30 ALT 13 units/L (7-56) 02/13/18 03:30 Alkaline Phosphatase 53 units/L (35-129) 02/13/18 03:30 Troponin T < 0.010 ng/mL (0.00-0.029) 02/11/18 17:27 Total Protein 6.3 g/dL (6.3-8.2) 02/13/18 03:30 Albumin 3.6 g/dL (3.9-5) L 02/13/18 03:30 Albumin/Globulin Ratio 1.3 % 02/13/18 03:30
--- NOTE | 2018-02-13 13:21 | Hem/Onc Consultation ---
History of Present Illness - Reason for Consult Consult date: 02/13/18 - History of Present Illness Note dictated. PE thrombocytopenia- mild Agree with switching to by mouth anticoagulant- eliquis or xarelto will follow in my office Past History Past Surgical History: No surgical history Social history: no significant social history Family history: no significant family history Medications and Allergies Allergies Allergy/AdvReac Type Severity Reaction Status Date / Time No Known Allergies Allergy Verified 02/11/18 17:20 Home Medications Medication Instructions Recorded Confirmed Last Taken Type No Known Home Medications [No 02/12/18 02/12/18 Unknown History Reported Home Medications] Active Meds: Active Medications Albuterol (Proventil) 2.5 mg IH QIDRT PRN PRN Reason: Shortness Of Breath Alprazolam (Xanax) 0.25 mg PO Q8H PRN PRN Reason: Anxiety Famotidine (Pepcid) 20 mg IV BID [facility] Last Admin: 02/13/18 11:00 Dose: 20 mg Heparin Sodium/Sodium Chloride (Heparin/ 0.45% Nacl-25,000 Unit/500 Ml) 25,000 unit in 500 mls @ 27 mls/hr IV TITR [facility]; Protocol Last Titration: 02/13/18 04:07 Dose: 1,200 units/hr, 24 mls/hr Morphine Sulfate (Morphine) 2 mg IV Q4H PRN PRN Reason: Pain, Moderate (4-6) Oxycodone/Acetaminophen (Percocet 5/325) 1 tab PO Q6H PRN PRN Reason: Pain, Moderate (4-6) Sodium Chloride (Sodium Chloride Flush Syringe 10 Ml) 10 ml IV BID [facility] Last Admin: 02/12/18 09:30 Dose: 10 ml Sodium Chloride (Sodium Chloride Flush Syringe 10 Ml) 10 ml IV PRN PRN PRN Reason: LINE FLUSH Zolpidem Tartrate (Ambien) 5 mg PO QHS PRN PRN Reason: Sleeplessness Exam - Constitutional Vitals: Last Vital Signs Temp 97.7 F 02/13/18 08:40 Pulse 70 02/13/18 08:40 Resp 14 02/13/18 08:40 BP 153/86 02/13/18 08:40 Pulse Ox 97 02/13/18 08:40 Results - Labs lab Results: Laboratory Results - last 24 hr 02/12/18 02/12/1802/13/18 13:32 17:05 03:30 WBC 5.9 RBC 4.72 Hgb 14.7 Hct 42.1 MCV 89 MCH 31 MCHC 35 H RDW 13.2 Plt Count 117 L Add Manual Diff Complete Total Counted 100 Seg Neutrophils % Digital Cartographic Technician Seg Neuts % (Manual) 34.0 L Band Neutrophils % 0 Lymphocytes % (Manual) 57.0 H Reactive Lymphs % (Man) 2.0 Monocytes % (Manual) 6.0 Eosinophils % (Manual) 1.0 Basophils % (Manual) 0 Metamyelocytes % 0 Myelocytes % 0 Promyelocytes % 0 Blast Cells % 0 Nucleated RBC % Not Reportable Seg Neutrophils # Man 2.0 Band Neutrophils # 0.0 Lymphocytes # (Manual) 3.4 Abs React Lymphs (Man) 0.1 Monocytes # (Manual) 0.4 Eosinophils # (Manual) 0.1 Basophils # (Manual) 0.0 Metamyelocytes # 0.0 Myelocytes # 0.0 Promyelocytes # 0.0 Blast Cells # 0.0 WBC Morphology Not Reportable Hypersegmented Neuts Not Reportable Hyposegmented Neuts Not Reportable Hypogranular Neuts Not Reportable Smudge Cells Not Reportable Toxic Granulation Not Reportable Toxic Vacuolation Not Reportable Dohle Bodies Not Reportable Pelger-Huet Anomaly Not Reportable Suleman Rods Not Reportable Platelet Estimate Consistent w auto Clumped Platelets Not Reportable Plt Clumps, EDTA Not Reportable Large Platelets Not Reportable Giant Platelets Not Reportable Platelet Satelliting Not Reportable Plt Morphology Comment Not Reportable RBC Morphology Normal Dimorphic RBCs Not Reportable Polychromasia Not Reportable Hypochromasia Not Reportable Poikilocytosis Not Reportable Anisocytosis Not Reportable Microcytosis Not Reportable Macrocytosis Not Reportable Spherocytes Not Reportable Pappenheimer Bodies Not Reportable Sickle Cells Not Reportable Target Cells Not Reportable Tear Drop Cells Not Reportable Ovalocytes Not Reportable Helmet Cells Not Reportable Niño-Rothbury Bodies Not Reportable [place] Rings Not Reportable Anupama Cells Not Reportable Bite Cells Not Reportable Crenated Cell Not Reportable Elliptocytes Not Reportable Acanthocytes (Spur) Not Reportable Rouleaux Not Reportable Hemoglobin C Crystals Not Reportable Schistocytes Not Reportable Malaria parasites Not Reportable Olaf Bodies Not Reportable Hem Pathologist Commnt No Heparin Anti-Xa Level 1.10 H 1.12 H Sodium Potassium Chloride Carbon Dioxide Anion Gap BUN Creatinine Estimated GFR BUN/Creatinine Ratio Glucose Calcium Total Bilirubin AST ALT Alkaline Phosphatase Total Protein Albumin Albumin/Globulin Ratio 02/13/18 02/13/18 03:30 03:30 WBC RBC Hgb Hct MCV MCH MCHC RDW Plt Count Add Manual Diff Total Counted Seg Neutrophils % Seg Neuts % (Manual) Band Neutrophils % Lymphocytes % (Manual) Reactive Lymphs % (Man) Monocytes % (Manual) Eosinophils % (Manual) Basophils % (Manual) Metamyelocytes % Myelocytes % Promyelocytes % Blast Cells % Nucleated RBC % Seg Neutrophils # Man Band Neutrophils # Lymphocytes # (Manual) Abs React Lymphs (Man) Monocytes # (Manual) Eosinophils # (Manual) Basophils # (Manual) Metamyelocytes # Myelocytes # Promyelocytes # Blast Cells # WBC Morphology Hypersegmented Neuts Hyposegmented Neuts Hypogranular Neuts Smudge Cells Toxic Granulation Toxic Vacuolation Dohle Bodies Pelger-Huet Anomaly Suleman Rods Platelet Estimate Clumped Platelets Plt Clumps, EDTA Large Platelets Giant Platelets Platelet Satelliting Plt Morphology Comment RBC Morphology Dimorphic RBCs Polychromasia Hypochromasia Poikilocytosis Anisocytosis Microcytosis Macrocytosis Spherocytes Pappenheimer Bodies Sickle Cells Target Cells Tear Drop Cells Ovalocytes Helmet Cells Niño-Roth[place] Bodies [place] Rings [place] Cells Bite Cells Crenated Cell Elliptocytes Acanthocytes (Spur) Rouleaux Hemoglobin C Crystals Schistocytes Malaria parasites Olaf Bodies Hem Pathologist Commnt Heparin Anti-Xa Level 0.67 Sodium 141 Potassium 3.9 Chloride 102.7 Carbon Dioxide 24 Anion Gap 18 BUN 11 Creatinine 1.1 Estimated GFR > 60 BUN/Creatinine Ratio 10 Glucose 153 H Calcium 8.6 Total Bilirubin 0.30 AST 15 ALT 13 Alkaline Phosphatase 53 Total Protein 6.3 Albumin 3.6 L Albumin/Globulin Ratio 1.3
[2018-02-13] MEDS ORDERED: MILK OF MAGNESIA PO ONE (13:50)
[2018-02-13] MEDS ORDERED: MILK OF MAGNESIA PO PRN (13:50)
--- NOTE | 2018-02-13 15:37 | Progress Note ---
Assessment and Plan Acute respiratory distress. Acute pulmonary saddle embolus with moderate clot burden of clot burden. Obesity. Elevated D-dimer. Hyperglycemia. Thrombocytopenia. - to begin Eliquis - other recs per hematoology - sleep clinic outpatient evaluation - continue GI prophylaxis - weight loss counselled - continue other care per attending ..... re-evaluate prn Subjective Date of service: 02/13/18 Principal diagnosis: Acute VTE (saddle Embolus and DVT); Obesity Interval history: Patient is seen today for: Acute VTE (saddle Embolus and DVT); Obesity Seen and examined at bedside; 24hour events reviewed; nursing and respiratory care staff consulted; no adverse overnight events reported to me; heme/onc evaluation ongoing; remains hemodynamically stable; No N/V/F/C; no gross bleeding or hemoptysis Objective Vital Signs - 12hr 02/13/18 02/13/18 02/13/18 03:39 04:35 08:40 Temperature 98.9 F 97.7 F Pulse Rate 80 77 70 Respiratory 20 14 Rate Blood Pressure 120/67 153/86 Blood Pressure 120/67 [Left] O2 Sat by Pulse 100 100 97 Oximetry Constitutional: no acute distress, alert, other (Obeses male; normocephalic and atraumatic) Eyes: non-icteric ENT: oropharynx moist, other (mallampatti 4) Neck: supple, no lymphadenopathy, no JVD, other (no thyromegaly) Effort: normal Ascultation: Bilateral: clear, diminished breath sounds Percussion: Bilateral: not dull Cardiovascular: regular rate and rhythm, other (no R/M) Gastrointestinal: normoactive bowel sounds, soft, non-tender, non-distended, other (No palpable HSM) Integumentary: normal Extremities: no cyanosis, pulses normal, no ischemia or petechiae, edema (R>L) Neurologic: normal mental status, non-focal exam, pupils equal and round, motor strength normal and Psychiatric: mood appropriate, affect normal CBC and BMP: 02/14/18 04:16 02/13/18 03:30 ABG, PT/INR, D-dimer: PT/INR, D-dimer PT 14.4 Sec. (12.2-14.9) 02/12/18 10:11 INR 1.06 (0.87-1.13) 02/12/18 10:11 D-Dimer 1919.19 ng/mlDDU (0-234) H 02/11/18 17:27 Abnormal lab findings: Abnormal Labs 02/11/18 02/11/18 02/11/18 17:27 17:27 17:27 MCHC Plt Count 109 L Lymph % (Auto) 43.4 H [place] % (Auto) 12.4 H Seg Neuts % (Manual) Lymphocytes % (Manual) APTT D-Dimer 1919.19 H Heparin Anti-Xa Level Glucose 123 H Albumin 02/12/18 02/12/18 02/12/18 10:11 10:11 13:32 MCHC Plt Count 115 L Lymph % (Auto) [place] % (Auto) Seg Neuts % (Manual) Lymphocytes % (Manual) APTT 212.0 H* D-Dimer Heparin Anti-Xa Level 0.87 H 1.10 H Glucose Albumin 02/12/18 02/13/18 02/13/18 17:05 03:30 03:30 MCHC 35 H Plt Count 117 L Lymph % (Auto) [place] % (Auto) Seg Neuts % (Manual) 34.0 L Lymphocytes % (Manual) 57.0 H APTT D-Dimer Heparin Anti-Xa Level 1.12 H Glucose [address] scan - chest: image reviewed Allied health notes reviewed: nursing
[2018-02-13] MEDS: HEPARIN/ 0.45% NACL-25,000 UNIT/500 ML 25,000 UNIT/500 ML BAG IV SCH (18:21)
[2018-02-13] MEDS: SODIUM CHLORIDE FLUSH SYRINGE 10 ML IV SCH (21:57)
[2018-02-13] MEDS: ELIQUIS PO SCH (21:57)
--- NOTE | 2018-02-14 05:05 | Consultation ---
REFERRING PHYSICIAN: Dr. Shena Giang. REASON FOR CONSULTATION: Pulmonary emboli. HISTORY OF PRESENT ILLNESS: The patient is a 57-year-old male who presented to the hospital with shortness of breath. He has noticed some right leg discomfort and minor swelling of the right leg. On his CT of the chest, he was found to have bilateral pulmonary emboli. He has been placed on heparin. He also had a Doppler of the lower extremity and the preliminary report is read as right popliteal and distal superficial femoral venous thrombosis. The Vascular Surgery saw the patient and they did not recommend any thrombolysis. The patient feels better, still is restricted in taking deeper breaths. He denies any previous history of thrombosis. Denies any family history of thrombosis. He had had a long car drive, which was more than 8 hours from [facility]. He denies any tobacco abuse. Denies any weight loss. Does not take any hormones. SOCIAL HISTORY: He does not smoke. Occasional alcohol use. PHYSICAL EXAMINATION: GENERAL: The patient is awake and oriented. HEENT: Unremarkable. CHEST: Revealed restricted breath, mostly on deep breath. CARDIOVASCULAR: Regular. ABDOMEN: Soft. EXTREMITIES: Have slight tenderness in the right leg. LABORATORY DATA: The patient's pertinent labs show hemoglobin of 14.7, white count 5.9, platelets 117,000. Liver functions are within normal limits. ASSESSMENT: 1. Pulmonary emboli and right-sided deep venous thrombosis in this 57-year-old otherwise healthy male with no family history of any thrombosis. 2. Long car drive more than 8 hours. RECOMMENDATION AND PLAN: At this time, discussed with the patient, agree with heparin. He can be switched to Eliquis. I can follow him as outpatient. The patient has mild thrombocytopenia. I will follow that as outpatient. If the patient has another bout of thrombosis, he would need a full hypercoagulable workup and anticoagulation indefinitely. If all goes well, we would recommend anticoagulation for about 6 months. The patient and family understand the plan. JOB# [id number] WILL/NTS
[2018-02-14 05:28] LABS: Hematocrit 45.7 % (35.5-45.6)
[2018-02-14] MEDS: ELIQUIS PO SCH (09:18)
[2018-02-14] MEDS: PEPCID IV SCH (09:18)
--- NOTE | 2018-02-14 09:18 | Hem/Onc Progress Note ---
Assessment and Plan gilson started plts improved upon d/c , will see him as op in 2 weeks. pt has my card Subjective Date of service: 02/14/18 Interval history: pt feels better Objective - Constitutional Vitals: Last Vital Signs Temp 98.0 F 02/14/18 04:31 Pulse 76 02/14/18 04:31 Resp 18 02/14/18 04:31 BP 117/66 02/14/18 04:31 Pulse Ox 95 02/14/18 04:31 Pain Intensity (0-10): denies any pain General appearance: no acute distress Performance status: 2- selfcare, ambulatory - Neck Neck: supple - Respiratory Respiratory effort: Positive: normal Respiratory: bilateral: other (mild insp restriction) - Gastrointestinal General gastrointestinal: Present: soft - Labs Lab Results: Laboratory Results - last 24 hr 02/14/18 02/14/18 04:16 04:19 Hgb 15.0 Hct 45.7 H Plt Count 131 L Heparin Anti-Xa Level 1.96 H
--- NOTE | 2018-02-14 09:56 | Progress Note ---
Assessment and Plan acute DVT and PE he is tolerating anticoagulation no indication for pulmonary EKOS if he will not tolerate anticoagulation in the near future, will consider IVC filter patient will f/u in our office after discharge Subjective Principal diagnosis: Acute VTE (saddle Embolus and DVT); Obesity Interval history: patient is doing well. No SOB at rest and while OOB to bathroom. Objective - Exam Narrative Exam: O2 sat aamir on room air - Constitutional Vitals: Vital Signs - 12hr 02/13/18 02/14/18 02/14/18 22:00 00:14 04:31 Temperature 98.4 F 98.0 F Pulse Rate 66 88 76 Respiratory 18 18 Rate Blood Pressure 129/87 117/66 O2 Sat by Pulse 100 95 Oximetry - Labs CBC & Chem 7: 02/14/18 04:16 02/13/18 03:30 Labs: Abnormal lab results 02/14/18 02/14/18 Range/Units 04:16 04:19 Hct 45.7 H (35.5-45.6) % Plt Count 131 L (140-440) K/mm3 Heparin Anti-Xa Level 1.96 H (0.3-0.7) U.I./ml
--- NOTE | 2018-02-14 10:13 | Discharge Summary ---
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 or go to emergency room Follow up with: PRIMARY CARE, [Primary Care Provider] - 3-5 Days SARAH LAM MD [Staff Physician] - 7 Days KIRILL ELIAS MD [Staff Physician] - 7 Days Prescriptions: Apixaban [Eliquis] 2 tab PO Q12HR #72 tablet oxyCODONE /ACETAMINOPHEN [Percocet 5/325 mg] 1 tab PO QHS PRN #5 tablet PRN Reason: Pain, Moderate (4-6)
[2018-02-14 13:02] VITALS: BP 119/79
--- NOTE | 2018-02-14 16:59 | Vascular Lab Report ---
LOWER EXTREMITY VENOUS DUPLEX: REASON FOR EXAM: Deep venous thrombosis and pulmonary embolism. COMMENTS ON THE RIGHT: Acute deep venous thrombosis is seen in the distal superficial femoral vein and popliteal vein. The remaining veins visualized are freely compressible without evidence of internal echogenicity. Spontaneous and phasic flow is present proximally. COMMENTS ON THE LEFT: All veins visualized are freely compressible without evidence of internal echogenicity. Flow is spontaneous and phasic throughout. IMPRESSION: Acute deep venous thrombosis involving the right distal superficial femoral vein and popliteal vein. No evidence of acute deep venous thrombosis in the left lower extremity.
[2018-02-14] MEDS ORDERED: PEPCID PO SCH (22:00)
== END 2018-02-14 12:15 | disposition home or self-care (01) | DRG 299 ==
LOC: ED 16:49 → CC1 02-12 01:01 → 4A 02-12 18:36
PROVIDERS: ADMIT Internal Medicine; ATTEND Internal Medicine
DX: I82.411 Acute embolism and thrombosis of right femoral vein (principal); I26.92 Saddle embolus of pulmonary artery without acute cor pulmonale; I82.431 Acute embolism and thrombosis of right popliteal vein; D69.6 Thrombocytopenia, unspecified; E66.9 Obesity, unspecified; R73.9 Hyperglycemia, unspecified; E78.5 Hyperlipidemia, unspecified; Z82.49 Family history of ischemic heart disease and other diseases of the circulatory system; Z68.32 Body mass index [BMI] 32.0-32.9, adult
CPT/HCPCS: 36415; 71046; 71275; 80048; 80053; 83516; 84484; 85007; 85014; 85018; 85025; 85049; 85301; 85305; 85307; 85379; 85520; 85610; 85613; 85730; 86147; 93005; 93010; 93306; 93970; J1644; Q9967

== ENCOUNTER 2020-11-20 21:26 | Emergency (ER) | payer OTHER ==
[2020-11-20 22:09] VITALS: BP 124/71
[2020-11-20] MEDS ORDERED: SODIUM CHLORIDE 0.9% 1000 ML 1,000 ML IV ONE (23:02)
[2020-11-20] MEDS ORDERED: IBUPROFEN 800 MG TAB PO ONE (23:03)
[2020-11-20 23:27] LABS: Basophils % (Auto) 0.8 % (0.0-1.8); Eosinophils % (Auto) 0.3 % (0.0-4.3); Hematocrit 44.2 % (35.5-45.6); Lymphocytes # (Auto) 1.5 K/mm3 (1.2-5.4); Lymphocytes % (Auto) 39.7 % (13.4-35.0); Mean Corpuscular HGB Conc 34 % (32-34); Mean Corpuscular Volume 93 fl (84-94); Monocytes # (Auto) 0.5 K/mm3 (0.0-0.8); Monocytes % (Auto) 13.1 % (0.0-7.3); Platelet Count 144 K/mm3 (140-440); Red Blood Count 4.76 M/mm3 (3.65-5.03); Red Cell Distribution Width 13.4 % (13.2-15.2)
--- NOTE | 2020-11-20 23:30 | XRay Report ---
XR chest routine 2V INDICATION / CLINICAL INFORMATION: cough, fever. COMPARISON: None available. FINDINGS: SUPPORT DEVICES: None. HEART /PULMONARY VASCULATURE: No significant abnormality. LUNGS / PLEURA: No significant pulmonary or pleural abnormality. No pneumothorax. ADDITIONAL FINDINGS: No significant additional findings. IMPRESSION: 1. No acute findings. Signer Name: Andrew Burden MD Signed: 11/20/2020 11:26 PM Workstation Name: [id number]
[2020-11-20 23:38] LABS: Alanine Aminotransferase 23 units/L (7-56); Albumin 4.1 g/dL (3.9-5); BUN/Creatinine Ratio 10; Blood Urea Nitrogen 13 mg/dL (9-20); Calcium 8.6 mg/dL (8.4-10.2); Hemolysis Index 16
--- NOTE | 2020-11-21 00:20 | Emergency Department Report ---
ED Fever HPI - General Chief Complaint: Fever Stated Complaint: FEVER PUI?: No Time Seen by Provider: 11/21/20 00:01 Source: patient Exam Limitations: no limitations - History of Present Illness Initial Comments: Patient is a 60-year-old male that presents emergency room with complaints of fever, fatigue, cough. Patient states that his temperature was 101 today. Patient states his symptoms been going on for 3 days. Patient dates his symptoms are worsening. Patient states when he takes a deep breath but it makes him cough. Patient denies chest pain. Patient denies shortness of breath. Patient denies loss of smell. Patient denies headache. Patient denies sore throat. Patient states he is not been tested for COVID-19. Patient denies recent travel. Patient denies recent international travel. Patient denies exposure to the novel coronavirus. Patient denies sick contacts. Denies loss of smell and loss of taste. Patient denies diarrhea. Patient denies coming in contact with anybody with symptoms of the novel coronavirus. 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 denies: abdominal pain, chest pain, confusion, diaphoresis, headache, muscle aches, nausea/vomiting, rash, shortness of breath, sore throat, stiff neck, syncope, weakness ED Review of Systems ROS: Stated complaint: FEVER Other details as noted in HPI ED Past Medical Hx - Past Medical History Previous Medical History?: No Hx Congestive Heart Failure: No Hx Diabetes: No Hx Asthma: No Hx COPD: No - Surgical History Past Surgical History?: No - Social History Smoking Status: Never Smoker Substance Use Type: None - Medications Home Medications: Home Medications Medication Instructions Recorded Confirmed Last Taken Type Apixaban [Eliquis] 2 tab PO Q12HR #72 tablet 02/14/18 Unknown Rx oxyCODONE /ACETAMINOPHEN [Percocet 1 tab PO QHS PRN #5 tablet 02/14/18 Unknown Rx 5/325 mg] Azithromycin [Zithromax TAB] 500 mg PO QDAY 5 Days #5 tablet 11/21/20 Unknown Rx methylPREDNISolone [Medrol 4MG 4 mg PO DAILY 6 Days #1 tab.ds.pk 11/21/20 Unknown Rx DOSEPAK (21 tabs)] ED Physical Exam - General Limitations: No Limitations General appearance: alert, in no apparent distress - Head Head exam: Present: atraumatic, normocephalic - Eye Eye exam: Present: normal appearance - ENT ENT exam: Present: mucous membranes moist - Neck Neck exam: Present: normal inspection - Respiratory Respiratory exam: Present: normal lung sounds bilaterally. Absent: respiratory distress - Cardiovascular Cardiovascular Exam: Present: regular rate, normal rhythm. Absent: systolic murmur, diastolic murmur, rubs, gallop - GI/Abdominal GI/Abdominal exam: Present: soft, normal bowel sounds - Rectal Rectal exam: Present: deferred - Extremities Exam Extremities exam: Present: normal inspection - Back Exam Back exam: Present: normal inspection - Neurological Exam Neurological exam: Present: alert, oriented X3 - Psychiatric Psychiatric exam: Present: normal affect, normal mood - Skin Skin exam: Present: warm, dry, intact, normal color. Absent: rash ED Course Vital Signs 11/20/20 22:02 Temperature 100.0 F H Pulse Rate 80 Respiratory 18 Rate Blood Pressure 124/71 O2 Sat by Pulse 98 Oximetry - Reevaluation(s) Reevaluation #1: I discussed all results and clinical findings with patient. I discussed plan of care with patient. Patient agrees with plan of care. Patient is stable for discharge. Patient will be discharged home. Patient given discharge instructions. Patient voiced understanding of discharge instructions. 11/21/20 00:16 ED Medical Decision Making - Lab Data Result diagrams: 11/20/20 23:04 11/20/20 23:04 - Radiology Data Radiology results: report reviewed, image reviewed interpreted by me: Chest x-ray: No pneumonia, no pneumothorax, no foreign body, no osseous findings, no acute findings - Medical Decision Making Patient is a 60-year-old male that presents emergency room with complaints of URI symptoms. Patient has not had a Covid test. Patient had labs which were essentially unremarkable. Patient chest x-ray was negative for acute findings. Patient declines other worrisome for a COVID-19 infection. Patient will be given treatment for COVID-19 to include Zithromax and steroids. Patient agrees with plan of care. Patient given a liter of fluids in the ER. Patient states he is feeling much better. Patient is stable for discharge. Patient discharged home. Patient given [place] precautions. Patient given [place] discharge instructions. - Differential Diagnosis Covid, URI, bronchitis, pneumonia, fever, cough Critical care attestation.: If time is entered above; I have spent that time in minutes in the direct care of this critically ill patient, excluding procedure time. ED Disposition Clinical Impression: Person under investigation for COVID-19, Fever, URI, acute Disposition: DC-01 TO HOME OR SELFCARE Is pt being admited?: No Does the pt Need Aspirin: No Condition: Stable Instructions: Upper Respiratory Infection, Adult, [id number], Fever, Adult, Cough, Adult, [id number], COVID-19 Frequently Asked Questions, COVID-19, COVID-19: How to Protect Yourself and Others - CDC, Prevent the Spread of COVID- 19 if You Are Sick - CDC, COVID-19 Additional Instructions: Patient to follow-up with primary care in 2 to 3 days. Patient to follow-up with health department and outpatient Covid testing in 2 to 3 days. Patient to rest. Patient to increase water. Patient to take [id number] supplements to include zinc, vitamin D and vitamin C. Patient to self quarantine for 14 days. Patient to wear a mask at all times. Patient to take Tylenol or ibuprofen as needed for pain. Patient to take meds as directed. Patient to return to the ER if condition worsens, changes or new symptoms arise. Prescriptions: methylPREDNISolone [Medrol 4MG DOSEPAK (21 tabs)] 4 mg PO DAILY 6 Days #1 ta b.ds.pk Azithromycin [Zithromax TAB] 500 mg PO QDAY 5 Days #5 tablet Referrals: PRIMARY CARE, [Primary Care Provider] - 2-3 Days Time of Disposition: 00:20
== END 2020-11-21 00:45 | disposition home or self-care (01) ==
LOC: ED 21:26
DX: J06.9 Acute upper respiratory infection, unspecified (principal); R50.9 Fever, unspecified; Z20.822 Contact with and (suspected) exposure to COVID-19; Z88.8 Allergy status to other drugs, medicaments and biological substances; Z79.899 Other long term (current) drug therapy
CPT/HCPCS: 36415; 71046; 80053; 82140; 85025; 96360; 99284; J7030